=== PATIENT | male | born 1970 | race Caucasian/White ===

== ENCOUNTER 2023-12-08 19:06 | Emergency (ER) | payer SELFPAY ==
[~2023-12-08] VITALS: Ht 185.4 cm; Wt 123.2 kg
[2023-12-08] MEDS ORDERED: DIPHTH,PERTUSS(ACELL),TET VAC 0.5 ML SYRINGE IM ONE (19:30)
[2023-12-08 20:20] VITALS: BP 108/74
== END 2023-12-08 20:22 | disposition home or self-care (01) ==
LOC: ED 19:06
DX: S01.81XA Laceration without foreign body of other part of head, initial encounter (principal); W01.198A Fall on same level from slipping, tripping and stumbling with subsequent striking against other object, initial encounter; Z23 Encounter for immunization
CPT/HCPCS: 90715